=== PATIENT | male | born 1975 | race Caucasian/White ===

== ENCOUNTER 2017-02-10 17:19 | Emergency (ER) | payer OTHER ==
[~2017-02-10] VITALS: Ht 185.4 cm; Wt 106.1 kg
[~2017-02-10 17:19] MED LIST: ALPRAZOLAM0.25 M2 PO; AMBIEN10 MG PO; BACTRIM,SEPT1 TABLET PO; FLEXERIL10 MG PO; IBUPROFEN600 MG PO; IBUPROFEN800 MG PO; INDOCIN25 MG PO; KEFLEX500 MG PO; LISINOPRIL-HCT1 EACH PO; MEDROL DOSEPAK4 MG PO; NAPROSYN500 MG PO; NEURONTIN100 MG PO; NEURONTIN300 MG PO; OXAYDO5 MG PO; OXYCODONE HCL5 MG PO; PERCOCET 5/31 TABLET PO; PREDNISONE20 MG PO; ROXICODONE5 MG PO; TRAMADOL HCL50 MG PO; TRICOR145 MG PO; ULTRAM50 MG PO; VALIUM5 MG PO; ZANAFLEX4 M1 PO; ZANAFLEX4 MG PO; ZOLPIDEM TARTRA10 MG PO
[2017-02-10 17:35] VITALS: BP 108/49
[2017-02-10] MEDS ORDERED: VALIUM5 MG PO (22:02)
== END 2017-02-10 22:31 | disposition home or self-care (01) ==
LOC: EME 17:19
DX: S33.5XXA Sprain of ligaments of lumbar spine, initial encounter (principal); M54.40 Lumbago with sciatica, unspecified side; G89.29 Other chronic pain; X50.1XXA Overexertion from prolonged static or awkward postures, initial encounter; F17.200 Nicotine dependence, unspecified, uncomplicated
CPT/HCPCS: 72100; 99281; 99283; J1885; J3360

== ENCOUNTER 2017-04-08 19:59 | Emergency (ER) | payer OTHER ==
[~2017-04-08] VITALS: Ht 182.9 cm; Wt 109.9 kg
[2017-04-08 23:10] VITALS: BP 125/84
== END 2017-04-08 23:11 | disposition home or self-care (01) ==
LOC: EME 19:59
DX: S60.221A Contusion of right hand, initial encounter (principal); S00.83XA Contusion of other part of head, initial encounter; S16.1XXA Strain of muscle, fascia and tendon at neck level, initial encounter; V48.0XXA Car driver injured in noncollision transport accident in nontraffic accident, initial encounter; Y92.410 Unspecified street and highway as the place of occurrence of the external cause; F41.9 Anxiety disorder, unspecified; Z87.891 Personal history of nicotine dependence
CPT/HCPCS: 70110; 73130; 99281; 99283

== ENCOUNTER 2017-07-13 14:50 | Emergency (ER) | payer OTHER ==
[~2017-07-13] VITALS: Ht 182.9 cm; Wt 108.0 kg
[2017-07-13 20:31] VITALS: BP 132/94
== END 2017-07-13 20:33 | disposition home or self-care (01) ==
LOC: EME 14:50
DX: S39.012A Strain of muscle, fascia and tendon of lower back, initial encounter (principal); X50.3XXA Overexertion from repetitive movements, initial encounter; Y93.H1 Activity, digging, shoveling and raking; Z87.891 Personal history of nicotine dependence; Z88.5 Allergy status to narcotic agent
CPT/HCPCS: 99281; 99284; J1885